=== PATIENT | male | born 1955 | race African-American/Black ===

== ENCOUNTER → 2025-03-15 | Outpatient (CLI) | payer MEDICARE, MEDICAID ==
[~2025-03-15] MED LIST: ALBU18HF2 IH; FLUT1BLS3 INH; FURO40TA5 MT; LACT10SO7 PO; MIDO5TAB4 PO; PANT40TA51 PO; POTA-205 MT
== END | disposition home or self-care (01) ==
LOC: CT 09:36
PROVIDERS: ATTEND Internal Medicine Pulmonary Disease
DX: J43.9 Emphysema, unspecified (principal); R91.1 Solitary pulmonary nodule; S22.060D Wedge compression fracture of T7-T8 vertebra, subsequent encounter for fracture with routine healing; S22.070D Wedge compression fracture of T9-T10 vertebra, subsequent encounter for fracture with routine healing; K76.0 Fatty (change of) liver, not elsewhere classified; X58.XXXD Exposure to other specified factors, subsequent encounter
CPT/HCPCS: 71250